=== PATIENT | male | born 1995 | race Caucasian/White ===

== ENCOUNTER 2018-12-01 17:31 | Emergency (ER) | payer OTHER ==
[~2018-12-01] VITALS: Ht 157.5 cm; Wt 56.7 kg
== END 2018-12-01 20:00 | disposition home or self-care (01) ==
LOC: ER 17:31
DX: G25.2 Other specified forms of tremor (principal); T40.7X5A Adverse effect of cannabis (derivatives), initial encounter

== ENCOUNTER 2022-04-12 02:14 | Emergency (ER) | payer OTHER | END 2022-04-12 03:40 | disposition HB | LOC: ER 02:14 | DX: U07.1 COVID-19 (principal) ==